=== PATIENT | female | born 1965 | race Caucasian/White ===

== ENCOUNTER 2019-07-04 14:13 | Emergency (ER) | payer OTHER, SELFPAY ==
--- NOTE | ~2019-07-04 | CT_ITS ---
EXAMINATION: CT abdomen pelvis wo con EXAM DATE: 07/04/2019 15:23 INDICATION: Abdominal pain. Back pain. TECHNIQUE: Spiral CT of the abdomen and pelvis was performed without contrast. Axial, coronal and s agittal images were reviewed. The dose-length product (DLP) for this examination was 732.95 mGy-cm. The exposure was tailored according to patient size (auto mA exposure control), and iterative recons truction (ASIR) was used as additional dose reduction technique. There is no prior study for compari son. FINDINGS: The liver, spleen, adrenal glands and pancreas are unremarkable. There are cholecystectomy clips. There is no nephrolithiasis or hydronephrosis. The uterus is unremarkable. The bladder i s unremarkable. There is no retroperitoneal or pelvic lymphadenopathy. The appendix is normal. The stomach and small bowel are unremarkable. There is expected amount of c olonic stool. No free intraperitoneal gas. The heart is normal in size. There are no pericardial or pleural effusions. The lung bases are unremarkable. Subacute left ninth rib fracture laterally. Subacute left eighth rib fracture posterolaterally. IMPRESSION: 1. No nephrolithiasis, hydronephrosis or acute intra-abdominal findings. 2. Subacute left eighth and ninth rib fractures. Reviewed, dictated and finalized at location A. LCANIZER CHARGER
[2019-07-04 14:16] VITALS: BP 132/80; PULSE 73; RESP 15; TEMP 37.2; O2SAT 100
--- NOTE | 2019-07-04 14:32 | ED.BACK ---
HPI - Back Pain/Injury General Chief Complaint: Back Pain/Injury Stated Complaint: BACK PAIN Time Seen by Provider: 07/04/19 14:19 Source: patient Mode of arrival: ambulatory Limitations: no limitations History of Present Illness HPI Narrative: A 53 y/o female pt presents to the ED, with c/o rt flank pain that radiates into her RLQ ABD x 2 weeks that has worsened over the last couple of days. Pt denies any fever, chills, or dysuria. Pt denies any recent trauma or a Hx of Sciatica. She denies taking any pain medication prior to arrival. Patient denies any bowel or bladder incontinence denies any numbness or tingling of the extremities MD elicited complaint: back pain (rt flank) Onset (ago): week(s) (2) Timing: progressively worsening Location: right flank Radiation: abdomen (RLQ) Related Data Home Medications Medication Instructions Recorded Confirmed albuterol sulfate [Ventolin HFA] INHALATION 07/04/19 alprazolam 07/04/19 atorvastatin 07/04/19 cetirizine mg 07/04/19 dicyclomine mg 07/04/19 ergocalciferol (vitamin D2) 07/04/19 ipratropium-albuterol ml INHALATION 07/04/19 montelukast mg 07/04/19 nitroglycerin mg 07/04/19 pantoprazole PO 07/04/19 sertraline mg 07/04/19 tramadol mg 07/04/19 Allergies Allergy/AdvReac Type Severity Reaction Status Date / Time fish derived Allergy Swelling Verified 07/04/19 14:19 of Lip/Tongue/Throat Contrast Media Allergy Unknown Swelling Uncoded 07/04/19 14:19 Review of Systems Review of Systems: All systems reviewed & are unremarkable except as noted in HPI and below Constitutional: Constitutional: Denies chills and Denies fever(s) Gastrointestinal: Gastrointestinal: Reports abdominal pain (RLQ) and Denies fecal incontinence Genitourinary: Genitourinary: Denies dysuria, Reports flank pain (rt) and Denies urinary incontinence [facility] Past Medical History Medical History (Updated 07/04/19 @ 15:55 by Juan Burger DO) Angina pectoris, unspecified Anxiety Asthma Depression Hypercholesterolemia Surgical History Surgical History (Updated 07/04/19 @ 15:34 by CEFERINO Herrera) History of section History of tubal ligation Social History Social History Smoking status: Never smoker Alcohol intake: never Substance use: never Gender identity (if verbalized by the patient): Female Comments PSHx: cervical disc, lt rotator cuff Exam Narrative: Exam Narrative: APPEARANCE: No acute distress, nontoxic, resting in bed Eyes: EOMI HEENT: Normocephalic, atraumatic, CV: Regular rate and rhythm without murmur RESPIRATORY: No respiratory distress. Clear to auscultation bilaterally. Abdomen: Soft nondistended, tender palpation right lower quadrant, no tenderness right upper quadrant, left upper quadrant left lower quadrant, no rebound or guarding MUSCULOSKELETAl: Moves all extremities, no clubbing cyanosis or edema Back: No midline lumbar tenderness to palpation or step-off, tender to palpation over right paravertebral muscles L3-5 , pain increased with forward flexion NEURO: Awake and alert. Following commands, speech normal, no focal deficits, muscle strength 5 out of 5 bilateral lower extremities, bilateral patellar reflex 2+ SKIN:: Warm, dry. Normal Color no rash or lesions Course Course Emergency Course: Discussed with patient results of workup and diagnosis. Discussed need for follow-up with primary care, proper use of medication, and reasons to return to the emergency department. Patient understands and agrees to current treatment plan. Patient states she ran out of her tramadol as yesterday and is no longer on tramadol Vital Signs Vital signs: Vital Signs Temperature 99 F 07/04/19 14:16 Pulse Rate 73 07/04/19 14:16 Respiratory Rate 15 07/04/19 14:16 Blood Pressure 132/80 07/04/19 14:16 Pulse Oximetry 100 07/04/19 14:16 Temperature 99 F 07/04/19
[2019-07-04] MEDS: SODIUM CHLORIDE 0.9% IV 1,000 ML 999 ML IV CONT (14:50)
[2019-07-04] MEDS: KETOROLAC 30 MG/ML VIAL (*BKC) IV PUSH (14:50)
[2019-07-04 14:51] LABS: Add Urine Microscopic? NO; Appearance Urine Clear (Clear); Bilirubin Urine Negative (Negative); Blood Urine Negative (Negative); Color Urine Straw (Yellow); Glucose Urine UA Negative (Negative); Ketones Urine Negative (Negative); Leukocyte Esterase Ur Negative LEU/UL (Negative); Nitrate Urine Negative (Negative); Protein Urine Negative (Negative); Specific Grav Ur 1.009 (1.001-1.035); Urobilinogen Urine Negative mg/dL (<2.0)
[2019-07-04 14:59] LABS: Basophils Absolute Auto 0.1 K/mm3 (0.0-0.1); Basophils Percent Auto 0.6 % (0.2-1.2); Eosinophils Absolute Auto 0.1 K/mm3 (0-0.3); Eosinophils Percent Auto 1.1 % (0-4.4); Hematocrit 45.8 % (37.0-47.0); Hemoglobin 15.1 g/dL (12.0-15.0); Immature Granulocyte Absolute 0.02 K/mm3 (0.00-0.031); Immature Granulocyte Percent A 0.2 % (0-0.5); Lymphocytes Absolute Auto 3.57 K/mm3 (0.9-3.2); Lymphocytes Percent Auto 33.6 % (18.3-44.2); Mean Corpuscular Hemoglobin 29.5 pg (26-34); Mean Corpuscular Volume 89.5 fl (80-100); Mean Platelet Volume 10.5 fl (7.4-10.4); Monocytes Absolute Auto 0.6 K/mm3 (0.1-0.6); Monocytes Percent Auto 5.9 % (2.6-8.5); Neutrophils Absolute Auto 6.2 K/mm3 (1.3-6.7); Neutrophils Percent Auto 58.6 % (45.5-73.1); Platelet Count Result 333 k/mm3 (150-375); Red Blood Count 5.12 M/mm3 (4.2-5.4); Red Cell Distribution Width 13.4 % (11.5-14.5); White Blood Count 10.6 K/mm3 (4.5-10.0)
[2019-07-04 15:10] LABS: Alanine Aminotransferase 21 U/L (4-35); Albumin Level 4.8 g/dL (3.5-5.1); Alkaline Phosphatase 88 U/L (38-126); Aspartate Amino Transferase 21 U/L (14-36); Bilirubin,Total 0.6 mg/dL (0.2-1.3); Blood Urea Nitrogen 10 mg/dL (7-17); Calcium 9.6 mg/dL (8.4-10.2); Carbon Dioxide 24 mmol/L (22-30); Chloride 104 mmol/L (98-107); Estimated CRCL calculation 104 ml/min; Estimated Glomerular Filt Rate > 60; Glucose 97 mg/dL (65-105); Lipase 63 U/L (23-300); Potassium 3.8 mmol/L (3.4-5.0); Sodium 139 mmol/L (137-145)
== END 2019-07-04 16:00 | disposition home or self-care (01) ==
PROVIDERS: Emergency Provider Emergency Medicine; PCP Internal Medicine
DX: M54.5 Low back pain (principal); F41.9 Anxiety disorder, unspecified; J45.909 Unspecified asthma, uncomplicated; F32.9 Major depressive disorder, single episode, unspecified; E78.5 Hyperlipidemia, unspecified
CPT/HCPCS: 36415; 74176; 80053; 81003; 81025; 83690; 85025; 96361; 96374; 99284; J1885; J7030

== ENCOUNTER 2019-11-08 13:13 | Emergency (ER) | payer OTHER, SELFPAY ==
--- NOTE | ~2019-11-08 | XR_ITS ---
EXAMINATION: XR chest 1V portable DATE: 11/08/2019 13:53 INDICATION: Chest pain and shortness of breath TECHNIQUE: frontal view of the chest was obtained. COMPARISON: Chest radiograph dated 04/24/2019 FINDINGS: The lungs remain clear with no focal airspace opacities, pulmonary edema, pleural effusion or pneumot horax. The cardiomediastinal silhouette is normal. Postoperative changes at the lower cervical spine. IMPRESSION: 1. No acute cardiopulmonary disease. Reviewed, dictated and finalized at location A.
--- NOTE | 2019-11-08 13:24 | ECG_ITS ---
Measurements Intervals [place] Rate: 86 P: 55 OR: 153 QRS: -10 QRSD: 78 T: 33 QT: 364 QTc: 436 Interpretive Statements SINUS RHYTHM BASELINE ARTIFACT- I, III, AVL NORMAL ECG Electronically Signed On 11-08-2019 13:32:38 CDT by Dmitriy Ortiz D.O.
[2019-11-08 13:25] VITALS: BP 156/83; PULSE 81; PULSE 87; RESP 21; TEMP 36.6; O2SAT 98
[2019-11-08 13:42] LABS: Basophils Absolute Auto 0.1 K/mm3 (0.0-0.1); Basophils Percent Auto 0.7 % (0.2-1.2); Eosinophils Absolute Auto 0.2 K/mm3 (0-0.3); Eosinophils Percent Auto 1.7 % (0-4.4); Hematocrit 42.8 % (37.0-47.0); Hemoglobin 14.3 g/dL (12.0-15.0); Immature Granulocyte Absolute 0.03 K/mm3 (0.00-0.031); Immature Granulocyte Percent A 0.3 % (0-0.5); Lymphocytes Absolute Auto 2.85 K/mm3 (0.9-3.2); Lymphocytes Percent Auto 30.1 % (18.3-44.2); Mean Corpuscular HGB Conc 33.4 g/dl (32-36); Mean Corpuscular Hemoglobin 30.2 pg (26-34); Mean Corpuscular Volume 90.5 fl (80-100); Mean Platelet Volume 10.2 fl (7.4-10.4); Monocytes Absolute Auto 0.6 K/mm3 (0.1-0.6); Monocytes Percent Auto 6.3 % (2.6-8.5); Neutrophils Absolute Auto 5.8 K/mm3 (1.3-6.7); Neutrophils Percent Auto 60.9 % (45.5-73.1); Platelet Count Result 279 k/mm3 (150-375); Red Blood Count 4.73 M/mm3 (4.2-5.4); Red Cell Distribution Width 13.2 % (11.5-14.5); White Blood Count 9.5 K/mm3 (4.5-10.0)
[2019-11-08 13:52] LABS: Blood Urea Nitrogen 8 mg/dL (7-17); Calcium 9.1 mg/dL (8.4-10.2); Carbon Dioxide 26 mmol/L (22-30); Chloride 107 mmol/L (98-107); Estimated CRCL calculation 98 ml/min; Estimated Glomerular Filt Rate > 60; Glucose 108 mg/dL (65-105); Potassium 3.4 mmol/L (3.4-5.0); Sodium 139 mmol/L (137-145)
[2019-11-08 13:53] VITALS: BP 132/70; PULSE 84; RESP 19; O2SAT 100
[2019-11-08 13:53] LABS: Prothrombin Time 13.2 Seconds (11.1-14.7)
[2019-11-08] MEDS: ASPIRIN 81 MG CHEWABLE TABLET 324 MG PO (13:53)
[2019-11-08 13:54] LABS: Partial Thromboplastin Time 24.7 SECONDS (22.3-36.8)
[2019-11-08 14:04] LABS: Troponin I < 0.012 ng/mL (0.000-0.034)
[2019-11-08 14:53] VITALS: BP 145/61; PULSE 81; RESP 15; O2SAT 98
[2019-11-08 15:19] VITALS: BP 133/67; PULSE 82; RESP 18; O2SAT 99
--- NOTE | 2019-11-08 15:22 | ED.CHESTPAIN ---
HPI - Chest Pain General Chief Complaint: Chest Pain Stated Complaint: sob/asthma/fever/chills Time Seen by Provider: 11/08/19 13:35 History of Present Illness HPI narrative: Patient presents with her fielmer? for multiple complaints. First her chest pain on the left sternum into the left shoulder is what it always is, 6 out of 10. She takes nitroglycerin for that. Secondly is her shortness of breath that she has chronic asthma, but no recent cough or smoke exposure. She has a headache on the left side, 6 out of 10. She usually takes Tylenol extra strength for that. She has a history of migraines. She also has loose stools and has had fecal incontinence. She has an intermittent vaginal discharge for the last 4 months. She works for [employer] services and needs a note to go back. She has been COVID tested and it was negative. MD complaint: chest pain Onset (ago): day(s) Timing of current episode: episodic Prior episodes: Yes Onset: during rest Related Data Home Medications Medication Instructions Recorded Confirmed albuterol sulfate [Ventolin HFA] INHALATION 07/04/19 alprazolam 07/04/19 atorvastatin 07/04/19 cetirizine mg 07/04/19 dicyclomine mg 07/04/19 ergocalciferol (vitamin D2) 07/04/19 ipratropium-albuterol ml INHALATION 07/04/19 montelukast mg 07/04/19 nitroglycerin mg 07/04/19 pantoprazole PO 07/04/19 sertraline mg 07/04/19 tramadol mg 07/04/19 Allergies Allergy/AdvReac Type Severity Reaction Status Date / Time fish derived Allergy Swelling Verified 07/04/19 14:19 of Lip/Tongue/Throat Contrast Media Allergy Unknown Swelling Uncoded 07/04/19 14:19 Review of Systems Review of Systems: Narrative: CONSTITUTIONAL: Denies fever, chills, or sweats. EYES: Denies visual changes, redness, or discharge. ENT: Denies rhinorrhea, congestion, sore throat, or otalgia. CARDIOVASCULAR: She has chronic chest pain, but not palpitations, or edema. RESPIRATORY: Denies cough or complains of shortness of breath GASTROINTESTINAL: Denies abdominal pain, nausea, vomiting, but has diarrhea. GENITOURINARY: Denies dysuria or hematuria. SKIN: Denies rash or itching. MUSCULOSKELETAL: Denies back pain, joint pain, or myalgia. NEUROLOGIC: He currently has a headache, numbness, or weakness. PSYCHIATRIC: Denies anxiety or depression. All systems reviewed & are unremarkable except as noted in HPI and below PMFSH Past Medical History Medical History (Updated 11/08/19 @ 17:06 by Yohana Loco MD) Angina pectoris, unspecified Anxiety Asthma Depression Hypercholesterolemia Surgical History Surgical History History of section History of tubal ligation Social History Social History Smoking status: Never smoker Alcohol intake: never Substance use: never Gender identity (if verbalized by the patient): Female Exam Narrative: Exam Narrative: GENERAL: Well-appearing, well-nourished, and in no acute distress. Very sweet. HEAD: Normocephalic, atraumatic. EYES: PERRLA and EOMI. ENT: Nares clear, no rhinorrhea or epistaxis. Mucous membranes moist. NECK: Supple. CHEST: Clear to auscultation. No respiratory distress. HEART: Regular rate and rhythm. No murmur heard. Normal peripheral pulses. ABDOMEN: Soft, nontender, nondistended, normal active bowel sounds. EXTREMITIES: Normal range of motion. No edema. SKIN: Warm, dry, no rash. NEURO: No focal deficits. Alert and oriented x3. PSYCH: Normal mood and affect. Course Reevaluation(s) Reevaluation #1: She feels so much better, would like to know what to do about the diarrhea. I told her probiotics and bland diet. They like a work note for her not have to go back. She is going to change doctors to her fianc?'s doctor. I told her that excess aspirin or ibuprofen can make excess bruises. She said she is going to cut down on her aspirin. Date:
[2019-11-08] MEDS: TRAMADOL HCL 50 MG TABLET PO (15:43)
[2019-11-08] MEDS: BELLADONNA ALK/PHENOB ELIX 10 ML, MAG HYDROX/ALUMINUM HYD/SIMETH 30 ML, LIDOCAINE HCL 2... PO (15:44)
[2019-11-08 15:46] VITALS: BP 133/67; PULSE 85; RESP 28; O2SAT 98
--- NOTE | 2019-11-08 16:50 | PC.NURSE ---
PT PROVIDED WATER AND SALTINES PER EDP RINKU ORDER. PT INSTRUCTED TO HIT CALL BUTTON IF ANYTHING CHANGES OR SHE BECOMES NAUSEATED AGAIN.
[2019-11-08 17:05] VITALS: BP 140/91; PULSE 62; RESP 18; O2SAT 98
[2019-11-08 17:07] LABS: Troponin I < 0.012 ng/mL (0.000-0.034)
== END 2019-11-08 17:15 | disposition home or self-care (01) ==
PROVIDERS: Emergency Medicine; Emergency Provider Emergency Medicine; PCP Internal Medicine
DX: R07.9 Chest pain, unspecified (principal); R51 Headache; R19.7 Diarrhea, unspecified; R06.02 Shortness of breath; J45.909 Unspecified asthma, uncomplicated; E78.00 Pure hypercholesterolemia, unspecified; F32.9 Major depressive disorder, single episode, unspecified; F41.9 Anxiety disorder, unspecified
CPT/HCPCS: 36415; 71045; 80048; 84484; 85025; 85610; 85730; 93005; 99284; A9270

== ENCOUNTER 2020-11-01 11:38 | Outpatient (CLI) | payer MEDICAID, SELFPAY ==
--- NOTE | ~2020-11-01 | CT_ITS ---
EXAMINATION: CT abdomen pelvis wo con DATE: 11/01/2020 12:02 INDICATION: Right flank pain TECHNIQUE: Computed tomography (CT) of the abdomen and pelvis was performed without intravenous contr ast. Automated exposure control and iterative reconstruction technique were employed. The dose-length product was 364.07 mGy-cm. COMPARISON: 07/04/2019 FINDINGS: Lung bases are clear. Heart size is normal. No pericardial or pleural effusion. Cholecystectomy clips the gallbladder fossa. Liver, spleen, pancreas and bilateral adrenal glands are normal. Kidneys and ureters are normal with no urolithiasis, hydroureteronephrosis or perinephric/ureteral stranding. Don dder is normal. There is edematous wall thickening at the splenic flexure of the colon consistent wit h colitis. Small bowel and appendix are normal. Bladder, uterus and bilateral adnexa are normal. No f ree intraperitoneal gas or fluid. No pathologically enlarged abdominal or pelvic lymphadenopathy. 4 m m anterolisthesis L4 on L5. Old healed posterolateral left eighth rib fracture. IMPRESSION: 1. Mild colonic wall thickening centered at the splenic flexure of the colon which could be due to de compressed state although differential would include colitis either infectious, inflammatory or ische esteban in etiology. Reviewed, dictated and finalized at location A. IMPRESSION: 1. Mild colonic wall thickening centered at the splenic flexure of the colon wh ich could be due to decompressed state although differential would include coli tis either infectious, inflammatory or ischemic in etiology.
== END 2020-11-01 11:39 | disposition home or self-care (01) ==
LOC: ANHIMG 11:47
PROVIDERS: PCP Nurse Practitioner Family; Visit Provider Nurse Practitioner Family
DX: R10.9 Unspecified abdominal pain (principal); R31.9 Hematuria, unspecified
CPT/HCPCS: 74176

== ENCOUNTER 2020-11-20 10:37 | Outpatient (CLI) | payer MEDICAID, SELFPAY ==
[2020-11-20 11:44] LABS: CRP < 0.5 mg/dL (<1.0); Lipase 554 U/L (23-300)
[2020-11-20 12:07] LABS: Erythrocyte Sedimentation Rate 3 mm/hr (0-20)
[2020-11-25 11:12] LABS: Tissue Transglutaminase IgA Ab 1 U/mL (<4)
[2020-11-25 15:05] LABS: Tissue Transglutaminase IgG Ab 2 U/mL (<6)
== END 2020-11-20 10:38 | disposition home or self-care (01) ==
PROVIDERS: PCP Nurse Practitioner Family; Visit Provider Nurse Practitioner Family
DX: R19.7 Diarrhea, unspecified (principal); R93.89 Abnormal findings on diagnostic imaging of other specified body structures
CPT/HCPCS: 36415; 83516; 83690; 85652; 86140

== ENCOUNTER 2020-11-27 11:39 | Outpatient (CLI) | payer MEDICAID, SELFPAY ==
[2020-12-04 21:30] LABS: Calprotectin, Stool 5 mcg/g
== END 2020-11-27 11:40 | disposition home or self-care (01) ==
PROVIDERS: PCP Nurse Practitioner Family; Visit Provider Nurse Practitioner Family
DX: R19.7 Diarrhea, unspecified (principal); R93.89 Abnormal findings on diagnostic imaging of other specified body structures
CPT/HCPCS: 83993; 87045; 87046; 87324; 87427

== ENCOUNTER 2021-12-11 09:36 | Emergency (ER) | payer OTHER, SELFPAY ==
--- NOTE | ~2021-12-11 | XR_ITS ---
EXAMINATION: XR chest 1V portable DATE: 12/11/2021 10:49 INDICATION: Cough. TECHNIQUE: A single frontal view of the chest was obtained. COMPARISON: Chest single view 11/08/2019, CT abdomen and pelvis 11/01/2020 FINDINGS: The chest demonstrates clear lungs without pneumonia, pleural effusion, or pneumothorax. Th e heart size is normal. There are changes of anterior fusion procedure in cervical spine. IMPRESSION: 1. No acute cardiopulmonary disease. Reviewed, dictated and finalized at location A.
[2021-12-11 09:44] VITALS: BP 128/71; PULSE 98; RESP 16; TEMP 36.6; O2SAT 98
--- NOTE | 2021-12-11 10:05 | ED.URI ---
HPI - URI/Sore Throat General Chief Complaint: Upper Respiratory Infection Stated Complaint: cough and body aches - covid testing requested Time Seen by Provider: 12/11/21 09:40 Source: patient Mode of arrival: ambulatory Limitations: no limitations History of Present Illness HPI Narrative: Patient is a 56-year-old female who presents the ED with report of upper respiratory symptoms. Patient reports having symptoms since Wednesday. She complains of cough, congestion, runny nose, subjective fever, chills, diaphoresis, nausea, myalgias, headache. She mentions having pain in her right rib associated with coughing, but denies any chest pain or difficulty breathing. 1 episode of vomiting last night. No abdominal pain. No headache currently. She has been taking Tylenol, DayQuil, NyQuil at home for symptoms. Patient has history of COPD and uses an inhaler and nebulizer at home. Patient presents to ED with her brother, whom she lives with and cares for. He has had similar symptoms for the past 1.5 days. Patient is vaccinated for COVID. Denies any known exposure. Requesting COVID testing. Related Data Home Medications Medication Instructions Recorded Confirmed albuterol sulfate 90 mcg/actuation inhalation 07/04/19 11/20/20 aerosol inhaler (Ventolin HFA) alprazolam 0.5 mg tablet 07/04/19 11/20/20 atorvastatin 20 mg tablet 07/04/19 11/20/20 cetirizine 10 mg tablet mg 07/04/19 11/20/20 dicyclomine 10 mg capsule mg 07/04/19 11/20/20 ergocalciferol (vitamin D2) 1,250 07/04/19 11/20/20 mcg (50,000 unit) capsule ipratropium 0.5 mg-albuterol 3 mg ml inhalation 07/04/19 11/20/20 (2.5 mg base)/3 mL nebulization soln nitroglycerin 0.4 mg sublingual mg 07/04/19 11/20/20 tablet pantoprazole 40 mg tablet,delayed PO 07/04/19 11/20/20 release sertraline 100 mg tablet mg 07/04/19 11/20/20 Allergies Allergy/AdvReac Type Severity Reaction Status Date / Time fish derived Allergy Swelling Verified 12/11/21 09:47 of Lip/Tongue/Throat Contrast Media Allergy Unknown Swelling Uncoded 07/04/19 14:19 Review of Systems Review of Systems: CONSTITUTIONAL: Reports subjective fever, chills, and sweats. ENT: Reports rhinorrhea, congestion. CARDIOVASCULAR: Denies chest pain. RESPIRATORY: Reports cough. Denies dyspnea. GASTROINTESTINAL: Reports nausea, vomiting. Denies abdominal pain or diarrhea. MUSCULOSKELETAL: Reports myalgia, R sided chest wall pain w/ coughing. NEUROLOGIC: Reports headache. Denies tingling, numbness, or weakness. All systems reviewed & are unremarkable except as noted in HPI and below PMFSH Past Medical History Medical History (Updated 12/11/21 @ 10:53 by Gissel Bain PA-C) Angina pectoris, unspecified Anxiety Asthma COPD (chronic obstructive pulmonary disease) Depression Diarrhea GERD (gastroesophageal reflux disease) Hypercholesterolemia Surgical History Surgical History (Updated 12/11/21 @ 10:09 by Gissel Bain PA-C) History of section History of cholecystectomy History of repair of rotator cuff History of tubal ligation Social History Social History Smoking status: Never smoker Alcohol intake: never Substance use: never Gender identity (if verbalized by the patient): Female Exam Narrative: GENERAL: Well appearing, well-nourished, non-toxic, in no acute distress. HEAD: Normocephalic, atraumatic. NECK: Supple. No adenopathy, no masses. RESPIRATORY: Airway patent, respirations nonlabored. Clear to auscultation bilaterally, no rales, rhonchi, wheezing. Frequent coughing on exam. CARDIOVASCULAR: Regular rate and rhythm without murmurs, rubs, or gallops. Peripheral pulses 2+ and equal bilaterally. ABDOMINAL: Soft, nontender, nondistended, no hepatosplenomegaly. Normoactive BS. MUSCULOSKELETAL: Moves all extremities. Strength/ROM intact without gross deformities. No calf tenderness. No edema. SKIN: Warm, dry
[2021-12-11 10:45] LABS: SARS-CoV-2 RNA PCR Positive
== END 2021-12-11 11:16 | disposition home or self-care (01) ==
PROVIDERS: Physician Assistant; Emergency Provider Emergency Medicine; PCP Nurse Practitioner Family
DX: U07.1 COVID-19 (principal); J44.9 Chronic obstructive pulmonary disease, unspecified; E78.00 Pure hypercholesterolemia, unspecified; I20.9 Angina pectoris, unspecified; K21.9 Gastro-esophageal reflux disease without esophagitis; F41.9 Anxiety disorder, unspecified
CPT/HCPCS: 71045; 99283; C9803; U0003; U0005

== ENCOUNTER 2022-08-03 10:49 | Emergency (ER) | payer OTHER, SELFPAY ==
--- NOTE | ~2022-08-03 | XR_ITS ---
EXAMINATION: XR ribs RT 2V w CXR 2V DATE: 08/03/2022 11:46 INDICATION: Right rib pain. Fall. TECHNIQUE: Frontal and lateral views of the chest and 2 views on 3 radiographs of the right ribs were obtained. COMPARISON: Chest single view 12/11/2021 FINDINGS: CHEST TWO VIEWS: There is no pneumonia, pleural effusion, or pneumothorax. The heart size is normal. There are changes of anterior fusion procedure in cervical spine. There are changes of cervical disc replacements. Surgical clips in the right upper quadrant are likely from cholecystectomy. RIGHT RIBS: There is an old fracture of right sixth rib. IMPRESSION: 1. No acute rib fracture. Reviewed, dictated and finalized at location A. ECTION SUPPORT SPECIALIST IMPRESSION: 1. No acute rib fracture.
--- NOTE | ~2022-08-03 | XR_ITS ---
EXAMINATION: XR shoulder RT min 2V DATE: 08/03/2022 11:46 INDICATION: Right shoulder pain. TECHNIQUE: 4 views of right shoulder were obtained. COMPARISON: None. FINDINGS: Bone alignment is normal. No fracture. There is mild osteoarthritis of glenohumeral joint a nd acromioclavicular joint. There are changes of anterior fusion procedure in cervical spine. There i s an old healed fracture of right sixth rib. IMPRESSION: 1. Mild polyarticular osteoarthritis. Reviewed, dictated and finalized at location A. RRAL AGENT
[2022-08-03 11:17] VITALS: BP 157/92; PULSE 90; RESP 16; TEMP 36.8; O2SAT 98
--- NOTE | 2022-08-03 12:34 | ED.FALL ---
HPI - Fall General Chief Complaint: Fall Stated Complaint: fall, R rib pain Time Seen by Provider: 08/03/22 11:29 Source: patient Mode of arrival: ambulatory Limitations: no limitations History of Present Illness HPI Narrative: This is a 56-year-old female that presents to the emergency department after a ground-level fall with right-sided rib pain. Reports she was walking her dog and tripped and fell onto her right side in the grass last night. Since she has had right-sided rib pain that makes it difficult to take a deep breath. Also reports right shoulder pain. She did not hit her head or lose consciousness. Denies decreased range of motion or numbness. Related Data Home Medications Medication Instructions Recorded Confirmed albuterol sulfate 90 mcg/actuation inhalation 07/04/19 11/20/20 aerosol inhaler (Ventolin HFA) alprazolam 0.5 mg tablet 07/04/19 11/20/20 atorvastatin 20 mg tablet 07/04/19 11/20/20 cetirizine 10 mg tablet mg 07/04/19 11/20/20 dicyclomine 10 mg capsule mg 07/04/19 11/20/20 ergocalciferol (vitamin D2) 1,250 07/04/19 11/20/20 mcg (50,000 unit) capsule ipratropium 0.5 mg-albuterol 3 mg ml inhalation 07/04/19 11/20/20 (2.5 mg base)/3 mL nebulization soln nitroglycerin 0.4 mg sublingual mg 07/04/19 11/20/20 tablet pantoprazole 40 mg tablet,delayed PO 07/04/19 11/20/20 release sertraline 100 mg tablet mg 07/04/19 11/20/20 Allergies Allergy/AdvReac Type Severity Reaction Status Date / Time fish derived Allergy Swelling Verified 08/03/22 11:19 of Lip/Tongue/Throat Contrast Media Allergy Unknown Swelling Uncoded 07/04/19 14:19 Review of Systems Review of Systems: CONSTITUTIONAL: Denies fever CARDIOVASCULAR: Reports rib pain RESPIRATORY: Denies dyspnea. MUSCULOSKELETAL: Reports joint pain, and myalgia. NEUROLOGIC: Denies numbness, or weakness. All systems reviewed & are unremarkable except as noted in HPI and below PMFSH Past Medical History Medical History (Updated 08/03/22 @ 12:39 by Moon Webb PA-C) Angina pectoris, unspecified Anxiety Asthma COPD (chronic obstructive pulmonary disease) Depression Diarrhea GERD (gastroesophageal reflux disease) Hypercholesterolemia Surgical History Surgical History (Updated 12/11/21 @ 10:09 by Gissel Alvares PA-C) History of section History of cholecystectomy History of repair of rotator cuff History of tubal ligation Social History Social History Smoking status: Never smoker Alcohol intake: never Substance use: never Occupation/Education: occupation Gender identity (if verbalized by the patient): Female Exam Narrative: GENERAL: Well-appearing, well-nourished, and in no acute distress. HEAD: Normocephalic, atraumatic. EYES: EOMI. CHEST: Clear to auscultation. No respiratory distress. No wheezes rales or rhonchi HEART: Regular rate and rhythm. No murmur heard. Normal peripheral pulses. EXTREMITIES: Normal range of motion. No edema or obvious deformity. Normal radial pulse. Normal sensation SKIN: Warm, dry, no rash. NEURO: No focal deficits. Alert and oriented x3. PSYCH: Normal mood and affect Course Course Emergency Course: Patient was updated on work-up and agrees with plan of care. Vital Signs Vital signs: Vital Signs Temperature 98.2 F 08/03/22 11:17 Pulse Rate 90 08/03/22 11:17 Respiratory Rate 16 08/03/22 11:17 Pulse Oximetry 98 08/03/22 11:17 Temperature 98.2 F 08/03/22 11:17 Pulse Rate 90 08/03/22 11:17 Respiratory Rate 16 08/03/22 11:17 Pulse Oximetry 98 08/03/22 11:17 MDM - Fall MDM Narrative Medical decision making narrative: Patient presents to the emergency department after a ground-level fall last night with right-sided rib pain and shoulder pain. She did not hit her head or lose consciousness. She is neurovascularly intact. Right shoulder and ri
== END 2022-08-03 13:14 | disposition home or self-care (01) ==
PROVIDERS: Emergency Provider Physician Assistant; PCP Nurse Practitioner Family
DX: S20.211A Contusion of right front wall of thorax, initial encounter (principal); F41.9 Anxiety disorder, unspecified; J45.909 Unspecified asthma, uncomplicated; F32.A Depression, unspecified; K21.9 Gastro-esophageal reflux disease without esophagitis; W01.0XXA Fall on same level from slipping, tripping and stumbling without subsequent striking against object, initial encounter
CPT/HCPCS: 71046; 71100; 73030; 99284

== ENCOUNTER 2024-05-18 16:05 | Emergency (ER) | payer OTHER, SELFPAY ==
[2024-05-18 16:17] VITALS: BP 139/60; PULSE 84; RESP 16; TEMP 36.5; O2SAT 100
[2024-05-18 16:39] LABS: EDCOVIDSCREEN Negative (Negative); EDINFLUASCREEN Negative (Negative); EDINFLUBSCREEN Negative (Negative)
--- NOTE | 2024-05-18 16:44 | ED_ITS ---
HPI - URI/Sore Throat General Chief Complaint: Upper Respiratory Infection Stated Complaint: fever,nauseated,chills,KNIGHT Time Seen by Provider: 05/18/24 16:44 Source: patient, RN notes reviewed and old records reviewed Mode of arrival: ambulatory Limitations: no limitations History of Present Illness HPI Narrative: 58-year-old female presents to the [facility] with complaints of fever, chills, headache and concern for a flu and COVID exposure. Symptoms started during last night at some point. Reports she believes she has had multiple contacts. Related Data Home Medications ?Medication ?Instructions ?Recorded ?Confirmed ?Last Taken ?Type albuterol sulfate 90 mcg/actuation inhalation 07/04/19 11/20/20 Unknown History aerosol inhaler (Ventolin HFA) alprazolam 0.5 mg tablet 0.5 mg PO DAILY 07/04/19 05/18/24 Unknown History atorvastatin 20 mg tablet 07/04/19 11/20/20 Unknown History cetirizine 10 mg tablet 10 mg PO DAILY 07/04/19 05/18/24 Unknown History dicyclomine 10 mg capsule 10 mg PO DAILY 07/04/19 05/18/24 Unknown History ergocalciferol (vitamin D2) 1,250 1,250 mcg PO WEEKLY 07/04/19 05/18/24 Unknown History mcg (50,000 unit) capsule nitroglycerin 0.4 mg sublingual 0.4 mg sublingual Q5M 07/04/19 05/18/24 Unknown History tablet pantoprazole 40 mg tablet,delayed 40 mg PO DAILY 07/04/19 05/18/24 Unknown History release sertraline 100 mg tablet 100 mg PO DAILY 07/04/19 05/18/24 Unknown History Allergies Allergy/AdvReac Type Severity Reaction Status Date / Time fish derived Allergy Swelling Verified 05/18/24 16:43 of Lip/Tongue/Throat [id number] Reductase AdvReac Intermediate Muscle Verified 05/18/24 16:51 Inhibitor Spasms Contrast Media Allergy Unknown Swelling Uncoded 05/18/24 16:43 Review of Systems Review of Systems: All systems reviewed & are unremarkable except as noted in HPI and below Constitutional: Constitutional: Reports as per HPI, Reports body ache(s), Reports chills and Reports headache(s) ENT: Reports system reviewed and no additional complaints, except as documented Cardiovascular: Cardiovascular: Reports no additional cardiovascular complaints, Denies chest pain and Denies dyspnea Respiratory: Respiratory: Reports no additional respiratory complaints, Denies chest congestion, Denies cough and Denies dyspnea Musculoskeletal: Musculoskeletal: Reports no additional musculoskeletal complaints Integumentary/Breasts: Skin/Breast: Reports system reviewed and no additional complaints, except as docu [facility] Past Medical History Medical History COPD (chronic obstructive pulmonary disease) GERD (gastroesophageal reflux disease) Diarrhea Depression Anxiety Angina pectoris, unspecified Hypercholesterolemia Asthma Surgical History Surgical History History of repair of rotator cuff History of cholecystectomy History of tubal ligation History of section Social History Social History Smoking status: Never smoker Alcohol intake: never Substance use: never Occupation/Education: occupation Gender identity (if verbalized by the patient): Female Comments At the time of my signature, I reviewed and agree with the nursing past medical, surgical, social, and family history. There is no relevant family history pertinent to the patient complaint. Exam Const: General: cooperative, healthy appearing, comfortable, no acute distress, well developed, alert and well nourished Nutritional Appearance: well nourished Orientation/consciousness: patient oriented x3 Limitations: no limitations HENMT: Head: normal to inspection Face/Nose/Sinus: normal facial exam and face symmetric Face and sinus: normal facial exam and face symmetric Mouth: Yes Normal oral and palatal mucosa present, Yes lip normal and Yes tongue normal Throat: posterior oropharynx normal, uvula midline, postnasal drainage and no uvular edema Eyes: General: appearance normal, both eyes and all related structures Neck: Neck: normal visual inspection, full ROM, no lymphadenopathy and no meningeal signs Chest: Chest palpation & inspection: normal inspection of the chest Resp: Effort & Inspection: normal respiratory effort and able to speak in complete sentences Auscultation: clear to auscultation bilaterally, no crackles, no rales, no rhonchi and no wheezes Cardio: Rate: regular rate Skin: General skin exam: normal color and no rashes or lesions noted Neuro: General: patient oriented x3, gait normal, moves all extremities and no meningeal signs Cognition (Neuro): normal cognition Speech: normal speech Gait exam (Neuro): Normal gait present Extrem: General: normal to inspection, full ROM, capillary refill normal and normal gait Psych: Appearance: grossly normal and well kempt Mental Status: mental status grossly normal Speech and movement: Normal speech and movement present and Clear speech present Affect: normal affect Attitude: cooperative Course Course Level of Care: Express Care Visit Vital Signs Vital signs: Vital Signs Temperature 97.7 F 05/18/24 16:17 Pulse Rate 84 05/18/24 16:17 Respiratory Rate 16 05/18/24 16:17 Blood Pressure 139/60 05/18/24 16:17 Pulse Oximetry 100 05/18/24 16:17 Oxygen Delivery Room Air 05/18/24 16:17 Temperature 97.7 F 05/18/24 16:17 Pulse Rate 84 05/18/24 16:17 Respiratory Rate 16 05/18/24 16:17 Blood Pressure 139/60 05/18/24 16:17 Pulse Oximetry 100 05/18/24 16:17 Oxygen Delivery Room Air 05/18/24 16:17 Reviewed MDM - URI/Sore Throat MDM Narrative Medical decision making narrative: Patient sitting comfortably in exam room. Nontoxic, vitals stable. Patient in no acute distress. Patient presents with less than 24 hours of URI symptoms, with concerns for exposure to flu and COVID Flu COVID test negative No acute findings other than postnasal drainage noted on exam Patient appropriate for outpatient treatment and follow-up Discharge instructions reviewed with patient, as well as provided in writing per nursing staff. The instructions also include specific and strict return/GO TO THE ER as well as f/u information. All questions have been answered, and the patient deny any further questions with discharge and discharge plan. Some parts of this dictation were generated by voice recognition software and may contain typographical and/or grammatical inaccuracies. Differential Diagnosis Differential diagnosis: Likely upper respiratory infection, otitis media, sinusitis, viral infection, bronchitis, influenza and pharyngitis Lab Data Labs: Lab Results 05/18/24 Range/Units 16:21 POC Influenza A Ag Negative (Negative) POC Influenza B Ag Negative (Negative) POC SARS CoV-2 Ag Negative (Negative) Reviewed Critical Care Time Critical Care Time Critical Care Time: No Discharge Plan Discharge Clinical Impression: Upper respiratory infection Qualifiers: URI type: unspecified viral URI Qualified Code(s): J06.9 - Acute upper respiratory infection, unspecified Patient Disposition: Home, Self-Care Condition: Stable Instructions: Antibiotic Form, Upper Respiratory Infection (DC) Additional Instructions: Your rapid COVID test were negative Your rapid flu test was negative Your symptoms are likely due to a viral illness, which is not treated with antibiotics. Typically viral infections last 7-10 days, can linger for couple of weeks. It is very important to treat your symptoms. Drink plenty of water, Gatorade, Pedialyte, ice pops or Jell-O. -Alternate Tylenol and Motrin per package directions for fever or pain. You can alternate every 4 hours -Antihistamine medication such as Benadryl at night and Zyrtec/Claritin/Maya during the day can help improve symptoms. -doing daily nasal irrigations can help relieve pressure your sinuses. Things like a Neti pot -Use Flonase twice a day for 5 days then daily to help reduce the inflammation and dry up your sinuses. -You can also use Mucinex. Be sure to drink plenty of water with this medication at least 8 ounces with every dose and it is important to drink 8 to 10 glasses of water per day. Water is a natural decongestant -Eat and drink things that are easy to swallow, like tea or soup, or popsicles. -Oral rinses such as: Salt water gargles and/or may use topical anesthetic (eg. Chloraseptic spray) or lozenges to relieve dryness or throat pain). -Frequent hand washing or hand hat brusher machine is one of the best ways to prevent spread of infection. -Using a vaporizer or humidifier at night will also help thin secretions and help with coughing up phlegm. -Follow up with primary care provider in 7-10 days if condition is not improving - For new or worsening symptoms go directly to the nearest ER Patient Language: Welsh Prescriptions: No Action atorvastatin 20 mg tablet cetirizine 10 mg tablet 10 mg PO DAILY sertraline 100 mg tablet 100 mg PO DAILY alprazolam 0.5 mg tablet 0.5 mg PO DAILY pantoprazole 40 mg tablet,delayed release (DR/EC) 40 mg PO DAILY nitroglycerin 0.4 mg tablet, sublingual 0.4 mg sublingual Q5M ergocalciferol (vitamin D2) 1,250 mcg (50,000 unit) capsule 1,250 mcg PO WEEKLY albuterol sulfate [Ventolin HFA] 90 mcg/actuation HFA aerosol inhaler INHALATION dicyclomine 10 mg capsule 10 mg PO DAILY Follow-up/Referrals: MYRA,POOJA CRUZ [Primary Care Provider] - [facility] Stand Alone Forms: Work/School Release IP Time of Disposition: 16:50
== END 2024-05-18 16:54 | disposition home or self-care (01) ==
PROVIDERS: Emergency Provider Nurse Practitioner; PCP Nurse Practitioner Family
DX: J06.9 Acute upper respiratory infection, unspecified (principal); Z20.822 Contact with and (suspected) exposure to COVID-19; J44.9 Chronic obstructive pulmonary disease, unspecified; I20.9 Angina pectoris, unspecified; K21.9 Gastro-esophageal reflux disease without esophagitis; E78.00 Pure hypercholesterolemia, unspecified; F41.9 Anxiety disorder, unspecified; F32.A Depression, unspecified
CPT/HCPCS: 87426; 87804; 99212; G0463

== ENCOUNTER 2024-07-04 08:19 | Emergency (ER) | payer OTHER, SELFPAY ==
--- NOTE | ~2024-07-04 | CT_ITS ---
EXAMINATION: CT abdomen pelvis wo con DATE: 07/04/2024 11:50 INDICATION: Left lower quadrant abdominal pain. TECHNIQUE: Computed tomography (CT) of the abdomen and pelvis was performed without intravenous contr ast. Automated exposure control and iterative reconstruction technique were employed. The dose-length product was 564.47 mGy-cm. COMPARISON: CT abdomen and pelvis 11/01/2020 FINDINGS: The visualized portions of the lung bases demonstrate mild atelectasis. No pleural effusion . The heart size is normal. No pericardial effusion. The liver and spleen are normal. There are bravo es of cholecystectomy. The pancreas, adrenal glands, and right kidney are normal. There are peripelvi c cysts in left kidney measuring up to 12 mm . There is no urolithiasis. There are no dilated loops o f bowel. The appendix is normal. There are no pathologically enlarged lymph nodes. There is no free i ntraperitoneal fluid. There is moderate lumbar spondylosis. IMPRESSION: 1. No etiology for the patient's symptoms. Reviewed, dictated and finalized at location [facility]. [facility] [employer]
[2024-07-04 08:22] VITALS: BP 123/61; PULSE 108; RESP 18; TEMP 36.7; O2SAT 94
[2024-07-04 11:10] VITALS: BP 131/69; PULSE 99; RESP 19; O2SAT 93
--- NOTE | 2024-07-04 11:30 | ECG_ITS ---
Test Date: 2024-07-04 12:03:02 Measurements Intervals [place] Rate: 88 P: 59 LA: 141 QRS: 6 QRSD: 90 T: 47 QT: 350 QTc: 424 Interpretive Statements SINUS RHYTHM NONSPECIFIC ST-T WAVE ABNORMALITY- INF/LAT LEADS BASELINE ARTIFACT- I, II, III, AVR, AVL, AVF BORDERLINE ECG No previous ECG available for comparison Electronically Signed On 07-04-2024 12:40:31 STAIN DIPPER by Dmitriy Ortiz D.O.
--- NOTE | 2024-07-04 11:36 | ED.URI ---
HPI - URI/Sore Throat General Chief Complaint: Upper Respiratory Infection Stated Complaint: flu symptoms Time Seen by Provider: 07/04/24 10:50 History of Present Illness HPI Narrative: Patient is a 58-year-old female who presents to the ER with a 2 day history vomiting, diarrhea, headache, fever, chills, coughing, and chest tightness. She reports her symptoms with a scratchy throat. Patient endorses a T-max of 102. She endorses a history of asthma, depression, anxiety and IBS. Patient denies shortness of pressure, wheezing, back pain. 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 Patient reports she has only been able to keep down ice chips for the last 2 days. Related Data Home Medications ?Medication ?Instructions ?Recorded ?Confirmed ?Last Taken ?Type albuterol sulfate 90 mcg/actuation inhalation 07/04/19 11/20/20 Unknown History aerosol inhaler (Ventolin HFA) alprazolam 0.5 mg tablet 0.5 mg PO DAILY 07/04/19 05/18/24 Unknown History atorvastatin 20 mg tablet 07/04/19 11/20/20 Unknown History cetirizine 10 mg tablet 10 mg PO DAILY 07/04/19 05/18/24 Unknown History dicyclomine 10 mg capsule 10 mg PO DAILY 07/04/19 05/18/24 Unknown History ergocalciferol (vitamin D2) 1,250 1,250 mcg PO WEEKLY 07/04/19 05/18/24 Unknown History mcg (50,000 unit) capsule nitroglycerin 0.4 mg sublingual 0.4 mg sublingual Q5M 07/04/19 05/18/24 Unknown History tablet pantoprazole 40 mg tablet,delayed 40 mg PO DAILY 07/04/19 05/18/24 Unknown History release sertraline 100 mg tablet 100 mg PO DAILY 07/04/19 05/18/24 Unknown History Allergies Allergy/AdvReac Type Severity Reaction Status Date / Time fish derived Allergy Swelling Verified 05/18/24 16:43 of Lip/Tongue/Throat [id number] Reductase AdvReac Intermediate Muscle Verified 05/18/24 16:51 Inhibitor Spasms Contrast Media Allergy Unknown Swelling Uncoded 05/18/24 16:43 Review of Systems Review of Systems: All systems reviewed & are unremarkable except as noted in HPI and below PMFSH Past Medical History Medical History COPD (chronic obstructive pulmonary disease) GERD (gastroesophageal reflux disease) Diarrhea Depression Anxiety Angina pectoris, unspecified Hypercholesterolemia Asthma Surgical History Surgical History History of repair of rotator cuff History of cholecystectomy History of tubal ligation History of section Social History Social History Smoking status: Never smoker Alcohol intake: never Substance use: never Occupation/Education: occupation Gender identity (if verbalized by the patient): Female Course Vital Signs Vital signs: Vital Signs Temperature 36.7 C 07/04/24 08:22 Pulse Rate 108 H 07/04/24 08:22 Respiratory Rate 18 07/04/24 08:22 Blood Pressure 123/61 07/04/24 08:22 Pulse Oximetry 94 07/04/24 08:22 Oxygen Delivery Room Air 07/04/24 08:22 Temperature 36.7 C 07/04/24 08:22 Pulse Rate 92 07/04/24 12:40 Respiratory Rate 20 07/04/24 12:40 Blood Pressure 128/70 07/04/24 12:40 Pulse Oximetry 94 07/04/24 12:40 Oxygen Delivery Room Air 07/04/24 11:09 MDM - URI/Sore Throat MDM Narrative Medical decision making narrative: Patient is a 58-year-old female who presents to the ER with a 2 day history vomiting, diarrhea, headache, fever, chills, coughing, and chest tightness. She reports her symptoms with a scratchy throat. Patient endorses a T-max of 102. She endorses a history of asthma, depression, anxiety and IBS. Patient denies shortness of pressure, wheezing, back pain. 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 Patient reports she has only been able to keep down ice chips for the last 2 days. Labs Ordered: CBC, CMP, INR, PTT, troponin, lipase, COVID/flu/RSV Imaging Ordered: CT abdomen pelvis, EKG Medications Ordered: 1 L normal saline IV bolus, Toradol 15 mg Results: Patient's respiratory swab came back positive for influenza A. Her CT abdomen/pelvis indicates The visualized portions of the lung bases demonstrate mild atelectasis. No pleural effusion. The heart size is normal. No pericardial effusion. The liver and spleen are normal. There are changes of cholecystectomy. The pancreas, adrenal glands, and right kidney are normal. There are peripelvic cysts in left kidney measuring up to 12 mm . There is no urolithiasis. There are no dilated loops of bowel. The appendix is normal. There are no pathologically enlarged lymph nodes. There is no free intraperitoneal fluid. There is moderate lumbar spondylosis. All other results were within normal limits. Diagnosis: Influenza A Patient Education/Shared MDM: Results shared with patient. She endorses improvement following medication administration. Patient strongly advised to maintain hydration status upon discharge and follow-up with her PCP. She will be discharged home with prescription for Tessalon Perles, Zofran, Prednisone, and Tamiflu, all for supportive care. Strict return precautions provided. Patient verbalized understanding is in agreement with plan. Vital signs stable at time of discharge. All questions answered. Differential Diagnosis Differential diagnosis: Likely upper respiratory infection, sinusitis, viral infection, bronchitis and influenza Lab Data Attestation: I reviewed the patient's lab results. 07/04/24 11:55 07/04/24 11:55 Labs: Lab Results 07/04/24 07/04/24 Range/Units 11:55 12:42 WBC 11.6 H (4.5-10.0) K/mm3 RBC 4.68 (4.2-5.4) M/mm3 Hgb 14.0 (12.0-15.0) g/dL Hct 41.9 (37.0-47.0) % MCV 89.5 (80-100) fl MCH 29.9 (26-34) pg MCHC 33.4 (32-36) g/dl RDW 13.5 (11.5-14.5) % Plt Count 213 (150-375) k/mm3 MPV 10.3 (7.4-10.4) fl Immature Gran % (Auto) 0.3 (0-0.5) % Neut % (Auto) 83.2 H (45.5-73.1) % Lymph % (Auto) 9.1 L (18.3-44.2) % [place] % (Auto) 6.9 (2.6-8.5) % Eos % (Auto) 0.2 (0-4.4) % Baso % (Auto) 0.3 (0.2-1.2) % Lymph # (Auto) 1.05 (0.9-3.2) K/mm3 [place] # (Auto) 0.8 H (0.1-0.6) K/mm3 Eos # (Auto) 0.0 (0-0.3) K/mm3 Baso # (Auto) 0.0 (0.0-0.1) K/mm3 Abs Immat Gran (auto) 0.04 H (0.00-0.031) K/mm3 Absolute Neuts (auto) 9.6 H (1.3-6.7) K/mm3 Absolute Nucleated RBC 0.000 (0.0-0.012) K/mm3 Nucleated RBC % 0.0 (0.0-0.2) % PT 13.9 (11.1-14.7) Seconds INR 1.0 APTT 31.8 (22.3-36.8) Seconds Sodium 135 L (137-145) mmol/L Potassium 3.3 L (3.4-5.0) mmol/L Chloride 101 (98-107) mmol/L Carbon Dioxide 23 (22-30) mmol/L Anion Gap 11 (4-12) mmol/L BUN 15 D (7-17) mg/dL Creatinine 0.51 L (0.7-1.0) mg/dL Estim Creat Clear Calc 111 ml/min Estimated GFR > 60 (59 - ) Glucose 105 (65-110) mg/dL Calcium 8.5 (8.4-10.2) mg/dL Total Bilirubin 0.4 (0.2-1.3) mg/dL AST 42 H (14-36) U/L ALT 34 (6-35) U/L Alkaline Phosphatase 60 (38-126) U/L Troponin I < 0.012 (0.000-0.034) ng/mL Total Protein 7.0 (6.3-8.2) g/dL Albumin 4.2 (3.5-5.1) g/dL Lipase 55 (23-300) U/L Urine Color Dark yellow (Yellow) Urine Appearance Clear (Clear) Urine pH 5.5 (5.0-9.0) Ur Specific [place] 1.032 (1.001-1.035) Urine Protein 1+ H (Negative) mg/dL Urine Glucose (UA) Negative (Negative) mg/dL Urine Ketones 2+ H (Negative) mg/dL Ur Blood (Man) Non-hemolyzed trace H (Negative) Urine Nitrate Negative (Negative) Urine Bilirubin Negative (Negative) Urine Urobilinogen 0.2 (<2.0) mg/dL Leukocyte Esterase Rfl Negative (Negative) RIN/UL Urine RBC 6-10 H (0-2) /hpf Urine WBC 0-5 (0-3) /hpf Ur Squamous Epith Cells Occasional (Few) /hpf Urine Bacteria None seen /hpf Urine Casts 0-2 Influenza A (RT-PCR) Positive A (Negative) Influenza B (RT-PCR) Negative (Negative) RSV (RT-PCR) Negative (Negative) SARS-CoV-2 RNA (RT-PCR) Negative (Negative) Imaging Data Attestation: I personally reviewed and interpreted this imaging study as follows: Radiologist's impression: Impressions Abdomen/Pelvis CT 07/04/24 11:58 IMPRESSION: 1. No etiology for the patient's symptoms. Discharge Plan Discharge Clinical Impression: Influenza, Upper respiratory infection Patient Disposition: Home, Self-Care Condition: Stable Instructions: Antibiotic Form, Influenza (ED), Viral Syndrome (ED) Additional Instructions: Please return to the ER with an worsening symptoms. Follow-up with primary care provider in the next 2-3 days. Take all medications as prescribed. Patient Language: Turkish Prescriptions: New methylprednisolone [Medrol (Ernie)] 4 mg tablets,dose pack See Rx Instructions .ROUTE .COMPLEX Qty: 21 0RF Rx Instructions: for 6 days benzonatate 100 mg capsule 100 mg PO TID Qty: 20 0RF ondansetron 4 mg tablet,disintegrating 4 mg PO Q8H Qty: 20 0RF oseltamivir [Tamiflu] 75 mg capsule 75 mg PO Q12H 5 Days Qty: 10 0RF No Action atorvastatin 20 mg tablet cetirizine 10 mg tablet 10 mg PO DAILY sertraline 100 mg tablet 100 mg PO DAILY alprazolam 0.5 mg tablet 0.5 mg PO DAILY pantoprazole 40 mg tablet,delayed release (DR/EC) 40 mg PO DAILY nitroglycerin 0.4 mg tablet, sublingual 0.4 mg sublingual Q5M ergocalciferol (vitamin D2) 1,250 mcg (50,000 unit) capsule 1,250 mcg PO WEEKLY albuterol sulfate [Ventolin HFA] 90 mcg/actuation HFA aerosol inhaler INHALATION dicyclomine 10 mg capsule 10 mg PO DAILY Follow-up/Referrals: MYRA,POOJA CRUZ [Primary Care Provider] - Stand Alone Forms: Work/School Release IP Time of Disposition: 13:52
--- NOTE | 2024-07-04 11:46 | PC.NURSE ---
Pt. to CT.
--- OUTSIDE RECORDS SUMMARY | 2024-07-04 11:48 | XMS_ITS | Clinical Summary ---
Author Organization [facility] Address [address] [place] [address]. [place] [address] [place] [address] Care Team Providers Care Video Technician Name Role Phone Anthony Stanley IDRIS Primary Care Provider [phone] Allergies Active Allergy Reactions Criticality Noted Date Comments Fish-Derived Products Shortness of Breath High 12/23 Iodine Shortness of Breath High 12/23/2018 Medications EPINEPHrine (EPIPEN 2-ROCIO) 0.3 MG/0.3ML injectionIndicati ons:History of anaphylaxis Inject 0.3 mLs (0.3 mg total) into the muscle as needed for Anaphylaxis. 1 each 1 01/03/20 22 Active rosuvastatin (CRESTOR) 20 MG tablet Take 1 tablet (20 mg total) by mouth nightly at bedtime. 90 tablet 3 12/08/19 23 Active budesonide-formot dara (SYMBICORT) 160-4.5 MCG/ACT inhalerIndication s:Pulmonary emphysema, unspecified emphysema type (CMS/HCC HHS/HCC) Inhale 2 puffs into the lungs 2 (two) times daily. Rinse and spit after 30.6 g 3 07/12/19 24 Active albuterol sulfate HFA 108 (90 Base) MCG/ACT inhalerIndication s:Pulmonary emphysema, unspecified emphysema type (CMS/HCC HHS/HCC) inhale 1 puff by mouth every 4 hours as needed 6.7 g 1 12/15/19 24 Active ipratropium-albut dara (DUONEB) 0.5-2.5 (3) MG/3ML SolutionIndicatio ns:Pulmonary emphysema, unspecified emphysema type (CMS/HCC [facility]) USE 1 VIAL VIA NEBULIZER EVERY 6 HOURS 1080 mL 12/15/19 24 Active alendronate (FOSAMAX) 70 MG tabletIndications :Other osteoporosis without current pathological fracture Take 1 tablet (70 mg total) by mouth every 7 days. 12 tablet 04/14/20 24 Active ALPRAZolam (XANAX) 0.25 MG tabletIndications :Anxiety Take 1 tablet (0.25 mg total) by mouth 3 (three) times daily as needed for Sleep. 60 tablet 1 04/14/20 24 Active cetirizine (ZYRTEC) 10 MG tabletIndications :Allergic Take 1 tablet (10 mg total) by mouth daily. 30 tablet 1 04/14/20 24 Active methocarbamol (ROBAXIN) 750 MG TabIndications:Ri b pain on right side Take 1-2 tablets (750-1,500 mg total) by mouth 3 (three) times daily. prn 90 tablet 1 04/14/20 24 Active zolpidem (AMBIEN) 10 MG tabletIndications :Primary insomnia Take 1 tablet (10 mg total) by mouth nightly as needed for Sleep. 30 tablet 1 04/14/20 24 Active vitamin D2, ergocalciferol, (DRISDOL) 1.25 mg capsuleIndication s:Vitamin D deficiency Take 1 capsule (1.25 mg total) by mouth every 7 days. 12 capsule 04/14/20 24 Active sertraline (ZOLOFT) 100 MG tabletIndications :Anxiety Take 1 tablet (100 mg total) by mouth daily. 90 tablet 2 04/14/20 24 Active ondansetron (ZOFRAN-ODT) 4 MG disintegrating tabletIndications :Nausea Take 1 tablet (4 mg total) by mouth every 8 (eight) hours as needed for Nausea. 30 tablet 04/14/20 24 Active pantoprazole EC (PROTONIX) 20 MG tabletIndications :Hiatal hernia,Gastroesop hageal reflux disease, unspecified whether esophagitis present,Family history of stomach cancer Take 1 tablet (20 mg total) by mouth daily. 90 tablet 1 04/14/20 24 Active dicyclomine (BENTYL) 10 MG capsuleIndication s:Irritable bowel syndrome with both constipation and diarrhea TAKE 1 CAPSULE(10 MG) BY MOUTH FOUR TIMES DAILY BEFORE MEALS AND AT NIGHT 360 capsule 06/26/19 25 Active dicyclomine (BENTYL) 10 MG capsuleIndication s:Irritable bowel syndrome with both constipation and diarrhea Take 1 capsule (10 mg total) by mouth 4 (four) times daily before meals and nightly. 360 capsule 04/14/20 24 025 Discontinued Active Problems Problem Noted Date Diagnosed Date Mild episode of recurrent major depressive disor zarina 08/10/2022 Rib pain on right side 08/10/2022 Colon cancer screening 07/31/2022 Overview (07/31/2022): Added automatically from request for surgery [id number] Hiatal hernia 07/31/2022 Overview (07/31/2022): Added automatically from request for surgery [id number] Family history of stomach cancer 07/31/2022 Overview (07/31/2022): Added automatically from request for surgery [id number] Family history of colonic polyps 07/31/2022 Overview (07/31/2022): Added automatically from request for surgery [id number] Tachycardia 07/22/2022 Polyarthralgia 01/06/2022 History of anaphylaxis 01/06/2022 Other osteoporosis without current pathological fracture 01/02/2022 Benign essential microscopic hematuria Urge incontinence of urine 07/16/2020 Elevated fasting glucose 07/16/2020 History of colonic polyps 04/04/2020 Post-menopausal 04/04/2020 Chronic bilateral low back p ain, unspecified whether sciatica present 04/04/2020 Anxiety 04/04/2020 Mixed hyperlipidemia 04/04/2020 Irritable bowel syndrome wit h both constipation and diarrhea 04/04/2020 Vitamin D deficiency 04/04/2020 Primary insomnia 04/04/2020 Pulmonary emphysema, unspeci fied emphysema type ([facility]) 04/04/2020 Seasonal allergies 04/04/2020 Mild intermittent asthma ([facility]) 03/08/2019 Overview (04/04/2020): Last Assessment & Plan: The patient will continue to use her Symbicort 2 puffs twice a day. Patient continue to use her albuterol inhaler nebulizer up to 4 times a day as needed for shortness of breath. The patient states she is going to go by an [id number] allergy pill. Class 1 obesity due to exces s calories with serious comorbidity and body mass index (BMI) of 32.0 to 32.9 in adult 11/07/2018 Gastroesophageal reflux disease 11/02/2018 Snoring 10/19/2018 Obstructive sleep apnea syndrome 10/19/2018 Resolved Problems Problem Noted Date Diagnosed Date Resolved Date Colitis 11/01/2020 08/10/2022 Flank pain 11/01/2020 11/25/2021 RUQ abdominal pain 11/01/2020 Chest wall pain 11/01/2020 11/25/2021 Dysuria 10/14/2020 11/25/2021 Acute cystitis without hematuria 07/16/2020 11/25/2021 Chest pain 10/19/2018 11/25/2021 Encounters Date Type Department Care Team Description 05/18/2024 Scan [facility] Scanned, [facility] (SCAN) 05/18/2024 Scan [facility] Scanned, [facility] (SCAN) 04/12/2024 Telephone [facility] [address] [id number] Anthony Stanley FNP Medication Request 04/10/2024 Telephone [facility] [address] [phone] Anthony Stanley FNP Reschedule; Medication Request from Last 3 Months Immunizations Name Administration Dates Next Due Flucelvax 6 Months+ (Prefilled Syringe) 03/07/20 Fluzone 6 Months+ Quad (0.5 mL Prefilled Syringe) 08/03/2023,07/20/2022,03/17/2021 PFIZER COVID-19 (ORIGINAL FO RMULATION, PURPLE CAP) mRNA, LNP-S, PF, 30 MCG/0.3 ML DOSE 04/07/2021,03/17/2021 Pneumococcal (Prevnar 20) 07/20/2022 Family History Medical History Relation Comments Colon polyps Brother 1 Coronary artery disease Brother 1 Hyperlipidemia Brother 1 Hypertension Brother 1 Klinefelter's syndrome Brother 1 Stent Cardiac Brother 1 CABG Father x4 CHF Father COPD Father Coronary artery disease Father Heart Attack Father Hypertension Father Lung Cancer Father Stent Cardiac Father Stroke Father Alzheimers Mother Atrial fibrillation Mother Hypoglycemia Mother Valve Disease Mother AAA Sister 1 Breast Cancer Sister 1 Lung Cancer Sister 1 Stomach cancer Sister 1 Stroke Sister 1 Heart Attack Sister 2 Stroke Sister 2 Relation Status Comments Brother 1 Alive Brother 2 Alive Father Maternal Grandfather Maternal Grandmother Mother Paternal Grandfather Paternal Grandmother Sister 1 Sister 2 Alive Social History Tobacco Use Types Packs/Day Years Used Date Smoking Tobacco: Never Passive Smoke Exposure: Never Smokeless Tobacco: Never Tobacco Cessation:Counseling Given: Not Answered Comments:been around second hand smoke her entire life Alcohol Use Standard Drinks/Week Comments Yes 0 (1 standard drink = 0.6 oz pur e alcohol) social PHQ-2 Answer Date Recorded Patient Health Questionnaire-2 Score 0 10/18/2023 Comments No Sex and Gender Information Value Date Recorded Sex Assigned at Female 11/11/2022 8:31 AM CDT Legal Sex Female 10:47 PM CDT Gender Identity Female 11/11/2022 8:31 AM CDT Sexual Orientation Straight 11/11/2022 8: 31 AM CDT 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 on file Not on file Not on file Last Filed Vital Signs Vital Sign Reading Time Taken Comments Blood Pressure 139/77 10/18/2023 10:15 AM CDT Pulse 86 10/18/2023 10:15 AM CDT Temperature 37.2 ??C (99 ??F) 10/18/2023 10:15 AM CDT Respiratory Rate 20 10/18/2023 10:15 AM CDT Oxygen Saturation 98% 10/18/2023 10:15 AM CDT Inhaled Oxygen Concentration - - Weight 88.5 kg (195 lb) 10/18/2023 10:15 AM CDT Height 162.6 cm (5' 4 ) 10/18/2023 10:15 AM CDT Body Mass Index 33.47 10/18/2023 10:15 AM CDT Plan of Treatment Health Maintenance Due Date Last Done Comments Annual Physical 1969 Hepatitis C 1984 DTaP, Tdap and Td Vaccines (1 - Tdap) 1985 Hepatitis B Vaccines (1 of 3 - 19+ 3-dose series) 1985 Zoster Vaccines (1 of 2) 2016 Mammogram Screening 12/03/2023 12/02/2021, 9 COVID-19 Vaccine ( - season) 2024 04/07/2021, 03/17/2021 Influenza Adult (#1) 2024 08/03/2023, 07/20/2022, 03/17/2021, Additional history exists PHQ-2 (Physician [place]) 05/31/2024 10/18/2023 Cervical Cancer Screening Pap Smear (Age 30 to 64) Every 3 Years 07/06/2025 07/06/2022 Cervical Cancer Screening Pap with HPV Testing (Age 30 to 64) Every 5 Years 07/06/2027 07/06/2022 Cervical Cancer Screening with HPV 07/06/2027 Colorectal Cancer Screening Colonoscopy (10 Years) 09/28/2032 09/28/2022, 09/28/2022, 02/29/2008 Pneumococcal Vaccine: Pediatrics (0 to 5 Years) and At-Risk Patients (6 to 64 Years) Completed 07/20/2022 Meningococcal B Vaccine Aged Out No l onger eligible based on patient's age to complete this topic Meningococcal Vaccine Aged Out No cherry daryl eligible based on patient's age to complete this topic RSV Immunizations Under 20 Months Aged Out No longer eligible based on patient's age to complete this topic Procedures Procedure Name Priority Date/Time Associated Diagnosis Comments OUTSIDE LAB COVID-19 (SCAN ORDER) Routine 05/18/2024 OUTSIDE LAB (SCAN ORDER) 05/18/2024 COLONOSCOPY Routine 09/28/2022 8:34 AM CDT HUMAN PAPILLOMAVIRUS, HIGH-RISK TYPES Routine 07/06/2022 12:00 PM [employer]ADLE [employer]ER CYTOPATH CERV/VAG THIN LAYER Routine 07/06/2022 8:38 AM LADLE LINER MG SCREENING W SULY MAGUE DIGI Routine 12/02/2021 10:23 AM CDT Encounter for screening mammogram for malignant neoplasm of breast from Last 3 Months or Most Recently Relevant to Health Maintenance Results * OUTSIDE LAB COVID-19 (05/18/2024) CORONAVIRUS SARS COV 2 PCR (RESP) NOT DETECTED NOT DETECTED [facility] ONBASE 05/18/2024 [employer] Scanned SCANNING Final Resu lt Performing Organization Address [facility] Co de Phone Number HS ONBASE * OUTSIDE LAB (SCAN ORDER) (05/18/2024) 05/18/2024 [employer] [facility] Scanned SCANNING Final Resu lt * HUMAN PAPILLOMAVIRUS, HIGH-RISK TYPES (07/06/2022 12:00 PM LADLE LINER) SPEC DESCRIPTION CERVICAL/END OCERVICAL 07/07/2022 8:57 AM LADLE LINER [facility] HPV DNA HIGH RISK NEGATIVE NEGATIVE 07/08/2022 3:32 PM LADLE LINER [facility] Comment:SEE CYTOLOGY REPORT 07/06/2022 12:0 0 PM LADLE LINER Anthony Stanley WE[facility]ER[employer] PATHOLOGY/CYTOLOGY ORDERABLES Final Result Performing Organization Address [facility] Co de Phone Number [facility] [address] [place] [address], * Cytopath Cerv/Vag Thin Layer (07/06/2022 8:38 AM LADLE LINER) THIN PREP PAP ? [facility] ?[address] ?[place] [address] ? Department of Pathology ? Pathology Report ? CERVICAL/VAGINAL PAP SMEAR REPORT Name: NORMA STUARTLesly Grace ? Age: 4 1965 (Age: 56) ?Location: [facility] Sex: F ?Collected Date: 07/06/2022 Hospital #: [id number] ?Date Received: 07/07/2022 Date Reported: 07/10/2022 Provider: ANTHONY STANLEY [employer] [facility]-C INTERPRETATION CERVICAL/ENDOCERVI GABRIELA: ? SATISFACTORY FOR EVALUATION. ENDOCERVICAL/TRANS FORMATION ZONE COMPONENT ABSENT. ? NEGATIVE FOR INTRAEPITHELIAL LESION OR MALIGNANCY. NEGATIVE FOR HIGH RISK HPV. The FDA approved Aptima HPV assay is an in vitro nucleic acid amplification test for the qualitative detection of E6/E7 viral messenger RNA (mRNA) from 14 high-risk types of human papillomavirus (HPV) in cervical specimens. ??The high-risk HPV types detected by the assay include: 16,18,31,33,35,39, 45,51,52,56,58,59, 66, and 68. Electronically Signed Out By TAYLOR Hunter (ASCP) CLINICAL HISTORY Z12.4 ?? Z11.51 SCREENING PAP TEST AND HPV ThinPrep Pap Test with HR HPV testing requested. Date of Last Menstrual Period: ? 11/25/20 Menstrual Status: Post-Menopausal SPECIMEN SUBMITTED CERVICAL/ENDOCERVI GABRIELA ?Specimen Received:1 Thin Prep Vial, Image Assisted Pap (SMD) ? Please note: The Pap smear is not a diagnostic test. ??It is a screening test. ??Negative results on combined screening (Pap test and HPV-DNA) have a high negative predictive value (99.1-100 percent) for cervical cancer. ??The pap test is not effective in detecting cervical adenocarcinoma. [facility] 07/06/2022 8:38 AM LADLE LINER 07/07/2022 8:38 AM LADLE LINER Comment:CERVICAL/ENDOCERVICA L Anthony Stanley [employer] PATHOLOGY/CYTOLOGY ORDERABLES Final Result [facility] [address] [place] [address], * MG SCREENING W SULY MAGUE HAMMONDS (12/02/2021 10:23 AM CDT) Anatomical Region Laterality Modality Breast Bilateral Mammography 12/02/2021 12:2 8 PM CDT Impressions 12/02/2021 12:29 PM CDT IMPRESSION: No suspicious mammographic findings. Recommendation: 1. Routine Screening, Bilateral Assessment: ACR BI-RADS 2 - BENIGN FINDING(S) Comments: A negative or benign mammography report should not delay follow-up or biopsy of a clinically significant finding or palpable abnormality. Regions of dense breast tissue may obscure findings on mammogram. Ordered By: ANTHONY STANLEY Interpreted By: Richar Espinoza MD, 12/02/2021 12:28 PM Narrative 12/02/2021 12:29 PM CDT Examination: Screening bilateral mammogram with 3-D tomosynthesis Clinical history: Positive family history of breast cancer. ??No present breast related complaints. Comparison: 01/18/2019 Technique: Digital screening mammography of both breasts was performed. 3-D tomosynthesis technique was also performed. This study was read with the assistance of computer-aided detection system. Tissue density: There are scattered areas of fibroglandular density. Findings: No suspicious masses, malignant appearing calcifications, skin thickening or other abnormalities are present. ??No significant change from the prior exam. us Anthony Stanley [facility] [employer] MAMMO Final Result * COLONOSCOPY/EGD GENERIC (02/29/2008) 02/29/2008 Narrative 02/29/2008 Ordered by an unspecified provider. us Documents Scanned SCANNING Final Result from Last 3 Months or Most Recently Relevant to Health Maintenance Insurance Care Teams Video Technician Relationship Specialty Start Date End Date Anthony Stanley FNP [address] [place] [id number] PCP - General Nurse Practitioner Family 04/01/20
--- OUTSIDE RECORDS SUMMARY | 2024-07-04 11:48 | XMS_ITS | Patient Health Summary ---
Author Organization [facility] [employer] Address [address] [place] [address] Care Team Providers Care Livestock Farmers Name Role Phone Unavailable Primary Care Provider Unavailabl e Note from [facility],non-owned Affiliates and Associated Physician Practices is amultiple site organization consisting of ambulatory clinics and hospital sitesin [place], [place], [place] and [place]. This disclosure is being madepursuant to the Care Everywhere program and may not contain all information available regarding this patient. 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
--- OUTSIDE RECORDS SUMMARY | 2024-07-04 11:48 | XMS_ITS | Referral Summary ---
Author Organization [facility] Address [address] [place] [address] Care Team Providers Care Radio Equipment Repairer Name Role Phone Unavailable Primary Care Provider Unavailabl e Source Comments [facility],non-owned Affiliates and Associated Physician Practices is amultiple site organization consisting of ambulatory clinics and hospital sitesin [place], [place], [place] and [place]. This disclosure is being madepursuant to the Care Everywhere program and may not contain all information available regarding this patient. Last updated 18.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
--- OUTSIDE RECORDS SUMMARY | 2024-07-04 11:48 | XMS_ITS | Clinical Summary ---
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 Gender Identity Not on file Sexual Orientation Not on file Plan of Treatment Health Maintenance Due Date Last Done Comments Hepatitis C Virus (HCV) Screening 1966 TdaP Immunization 1966 Hepatitis B Immunization (1 of 3 - 19+ 3-dose series) 1985 Pap Smear 09/18/1987 Cervical Cancer Screening (CCS) 1996 HPV/Cotest 1996 Colonoscopy 09/18/2011 Colorectal Cancer Screening 09/18/2011 Cologuard 2016 Immunochemical Fecal Occult Blood 2016 Mammogram 2016 Pneumococcal Immunization (5 0+ years) (1 of 1 - PCV) 2016 Zoster Immunization (1 of 2) 2016 Influenza Immunization (#1) 2024 03/07/2019 SARS-COV-2 Immunization ( - 2023- season) 2024 Respiratory Syncytial Virus (RSV) Immunization (Adult) (1 - 1-dose 75+ series) 2041 Meningococcal Immunization (ACWY) Aged Out No longer eligible based on patient's age to complete this topic Pneumococcal Immunization Combined Aged Out No longer eligible based on patient's age to complete this topic Rotavirus Immunization Aged Out No lo nger eligible based on patient's age to complete this topic
--- OUTSIDE RECORDS SUMMARY | 2024-07-04 11:48 | XMS_ITS | Clinical Summary ---
Author Organization [facility] [employer] Address [address] [place] [address] Care Team Providers Care Rivet Heater Name Role Phone Unavailable Primary Care Provider Unavailabl e Source Comments [facility] [employer],non-owned Affiliates and Associated Physician Practices is amultiple site organization consisting of ambulatory clinics and hospital sitesin [place], [place], [place] and [place]. This disclosure is being madepursuant to the Care Everywhere program and may not contain all information available regarding this patient. 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 Gender Identity Female 04/05/2023 12:09 PM PLASTIC WELDING MACHINE OPERATOR Sexual Orientation Not on file Plan of Treatment Health Maintenance Due Date Last Done Comments COLOGUARD (AGES 45-75) - COL ON CA SCREENING 1966 COLON MONITORING 1966 COLONOSCOPY - COLON CA SCREENING 1966 CT COLONOGRAPHY - COLON CA SCREENING 1966 Colorectal Cancer Screening 1966 FIT - COLON CA SCREENING 1966 FLEX SIG - COLON CA SCREENING 1966 LIPID TESTING 1966 MAMMOGRAM 1966 PAP SMEAR 1966 HIV SCREENING 1981 HEPATITIS C SCREENING 09/12/1984 DTAP/TDAP/TD VACCINES (1 - Tdap) 1985 HEPATITIS B VACCINE (1 of 3 - 19+ 3-dose series) 1985 PNEUMOCOCCAL VACCINE 50+ (1 of 1 - PCV) 2016 ZOSTER VACCINE (1 of 2) 2016 COVID-19 VACCINE ( - 2023-2 5 season) 2024 04/07/2021, 03/17/2021 INFLUENZA VACCINE (#1) 2024 , 03/17/2021, 03/07/2019 DEPRESSION SCREENING 05/31/2024 HIB VACCINE Aged Out No longer eligi ble based on patient's age to complete this topic HPV VACCINE Aged Out No longer eligi ble based on patient's age to complete this topic MENINGOCOCCAL (Group B) VACCINE Aged Out No longer eligible b ased on patient's age to complete this topic MENINGOCOCCAL VACCINE Aged Out No cherry daryl eligible based on patient's age to complete this topic PNEUMOCOCCAL VACCINE Aged Out No long er eligible based on patient's age to complete this topic
[2024-07-04] MEDS: KETOROLAC 15 MG/ML VIAL (*BKC) IV PUSH (11:58)
[2024-07-04] MEDS: SODIUM CHLORIDE 0.9% IV 1,000 ML 999 ML IV CONT (11:58)
[2024-07-04 12:13] LABS: Basophils Percent Auto 0.3 % (0.2-1.2); Eosinophils Percent Auto 0.2 % (0-4.4); Hematocrit 41.9 % (37.0-47.0); Immature Granulocyte Absolute 0.04 K/mm3 (0.00-0.031); Immature Granulocyte Percent A 0.3 % (0-0.5); Lymphocytes Absolute Auto 1.05 K/mm3 (0.9-3.2); Lymphocytes Percent Auto 9.1 % (18.3-44.2); Mean Corpuscular HGB Conc 33.4 g/dl (32-36); Mean Corpuscular Hemoglobin 29.9 pg (26-34); Mean Corpuscular Volume 89.5 fl (80-100); Mean Platelet Volume 10.3 fl (7.4-10.4); Monocytes Absolute Auto 0.8 K/mm3 (0.1-0.6); Monocytes Percent Auto 6.9 % (2.6-8.5); Neutrophils Absolute Auto 9.6 K/mm3 (1.3-6.7); Neutrophils Percent Auto 83.2 % (45.5-73.1); Platelet Count Result 213 k/mm3 (150-375); Red Blood Count 4.68 M/mm3 (4.2-5.4); Red Cell Distribution Width 13.5 % (11.5-14.5); White Blood Count 11.6 K/mm3 (4.5-10.0)
[2024-07-04 12:21] LABS: Prothrombin Time 13.9 Seconds (11.1-14.7)
[2024-07-04 12:22] LABS: Partial Thromboplastin Time 31.8 Seconds (22.3-36.8)
[2024-07-04 12:23] LABS: Alanine Aminotransferase 34 U/L (6-35); Albumin Level 4.2 g/dL (3.5-5.1); Alkaline Phosphatase 60 U/L (38-126); Anion Gap 11 mmol/L (4-12); Aspartate Amino Transferase 42 U/L (14-36); Bilirubin,Total 0.4 mg/dL (0.2-1.3); Blood Urea Nitrogen 15 mg/dL (7-17); Calcium 8.5 mg/dL (8.4-10.2); Carbon Dioxide 23 mmol/L (22-30); Chloride 101 mmol/L (98-107); Estimated CRCL calculation 111 ml/min; Estimated Glomerular Filt Rate > 60; Glucose 105 mg/dL (65-110); Lipase 55 U/L (23-300); Potassium 3.3 mmol/L (3.4-5.0); Sodium 135 mmol/L (137-145)
[2024-07-04 12:35] LABS: Troponin I < 0.012 ng/mL (0.000-0.034)
[2024-07-04 12:40] VITALS: BP 128/70; PULSE 92; RESP 20; O2SAT 94
[2024-07-04 12:48] LABS: Influenza A QL RT-PCR Positive (Negative); Influenza B QL RT-PCR Negative (Negative); RSV RNA, RT-PCR Negative (Negative); SARS-CoV-2 RNA PCR Negative (Negative)
[2024-07-04 12:51] LABS: Add Urine Microscopic? YES; Appearance Urine Clear (Clear); Bacteria Urine None Seen /hpf; Bilirubin Urine Negative (Negative); Blood Urine Non-Hemolyzed Trace (Negative); Color Urine Dark Yellow (Yellow); Glucose Urine UA Negative (Negative); Ketones Urine 2+ mg/dL (Negative); Leukocyte Esterase Ur Negative LEU/UL (Negative); Nitrate Urine Negative (Negative); Non Pathogenic Casts 0-2; Protein Urine 1+ mg/dL (Negative); Specific Grav Ur 1.032 (1.001-1.035); Squamous Epithelial Cell Urine Occasional /hpf (Few); Urobilinogen Urine 0.2 mg/dL (<2.0); WBC Urine 0-5 /hpf (0-3); pH Urine 5.5 (5.0-9.0)
[2024-07-04 13:59] VITALS: BP 136/69; PULSE 87; RESP 16; O2SAT 94
== END 2024-07-04 14:03 | disposition home or self-care (01) ==
PROVIDERS: Emergency Provider Registered Nurse; PCP Nurse Practitioner Family
DX: J10.1 Influenza due to other identified influenza virus with other respiratory manifestations (principal); Z20.822 Contact with and (suspected) exposure to COVID-19; I20.9 Angina pectoris, unspecified; J44.9 Chronic obstructive pulmonary disease, unspecified; E78.00 Pure hypercholesterolemia, unspecified; K21.9 Gastro-esophageal reflux disease without esophagitis; F32.A Depression, unspecified; F41.9 Anxiety disorder, unspecified; Z90.49 Acquired absence of other specified parts of digestive tract; Z79.899 Other long term (current) drug therapy; R94.31 Abnormal electrocardiogram [ECG] [EKG]
CPT/HCPCS: 36415; 74176; 80053; 81001; 83690; 84484; 85025; 85610; 85730; 87637; 93005; 96361; 96374; 99284; J1885; J7030